=== PATIENT | male | born 1975 | race Caucasian/White ===

== ENCOUNTER 2019-08-16 08:59 | Emergency (ER) | payer OTHER ==
[~2019-08-16] VITALS: Ht 175.3 cm; Wt 99.8 kg
[~2019-08-16 08:59] MED LIST: AUGMENTIN 875875 MG PO; BACTRIM DS TAB1 EACH PO; CITRATE OF MAG296 ML; DULCOLAX5 MG; ENEMA133 ML; HYDROCODON-ACE1 EAC7 PO; KEFLEX500 MG PO; NEURONTIN600 MG PO; NORCO 5-325 TA1 EACH PO; OXYCONTIN; OXYCONTIN15 MG PO; REMERON15 MG PO; RISPERDAL4 MG PO; STOOL SOFTENER50 MG
[2019-08-16 09:39] LABS: ABSOLUTE BASOPHILS 0.2 thou/uL (0.0-0.2); ABSOLUTE EOSINOPHILS 0.3 thou/uL (0.0-0.7); ABSOLUTE MONOCYTES 1.3 thou/uL (0.0-1.2); ABSOLUTE NEUTROPHILS 9.2 thou/uL (1.6-8.1); BASOPHILS 1.3 %; EOSINOPHILS 2.4 %; HEMOGLOBIN 15.5 gm/dL (14.0-18.0); LYMPHOCYTES 15.4 %; MCH 30.4 pg (26.0-34.0); MCHC 34.5 g/dL (28.0-37.0); MCV 88.1 fL (80.0-100.0); MPV 11.3 fl. (7.2-11.1); NUCLEATED RBCS 0 /100WBC; PLATELET COUNT* 168 thou/uL (150-400); POLYS 70.9 %; RBC 5.11 mil/uL (4.50-6.00)
[2019-08-16 09:51] LABS: CALCIUM 8.9 mg/dL (8.5-10.1); CREATININE 1.2 mg/dL (0.6-1.3); POTASSIUM 4.1 mmol/L (3.5-5.1)
[2019-08-16 09:55] LABS: ALBUMIN 3.8 g/dL (3.4-5.0); SALICYLATE < 2.8 mg/dL (2.8-20.0); TOTAL BILIRUBIN 0.8 mg/dL (<0.1-1.0); TOTAL PROTEIN 7.5 g/dL (6.4-8.2)
[2019-08-16 09:57] LABS: ACETAMINOPHEN < 2 ug/mL (10-30); ALCOHOL < 10 mg/dL (<10)
[2019-08-17 10:24] LABS: URINE BILIRUBIN NEGATIVE (Negative); URINE BLOOD NEGATIVE (Negative); URINE CLARITY CLEAR; URINE COLOR YELLOW; URINE GLUCOSE-RANDOM NEGATIVE (Negative); URINE KETONES NEGATIVE (Negative); URINE LEUKOCYTES-REFLEX NEGATIVE (Negative); URINE NITRITE-REFLEX NEGATIVE (Negative); URINE PROTEIN NEGATIVE (Negative); URINE UROBILINOGEN 0.2 E.U./dl (0.2-1.0)
[2019-08-17 10:31] LABS: AMP/METHAMP Negative (Negative); BARBITURATES Negative (Negative); BENZODIAZEPINES Negative (Negative); COCAINE Negative (Negative); METHADONE Negative (Negative); OPIATES Negative (Negative); PCP Negative (Negative); THC Negative (Negative)
[2019-08-17 12:02] VITALS: BP 130/82
== END 2019-08-17 12:02 | disposition home or self-care (01) ==
LOC: M.ERS 08:59
PROVIDERS: Emergency Medicine
DX: F29 Unspecified psychosis not due to a substance or known physiological condition (principal); F32.9 Major depressive disorder, single episode, unspecified; F17.210 Nicotine dependence, cigarettes, uncomplicated; Z90.49 Acquired absence of other specified parts of digestive tract; Z88.6 Allergy status to analgesic agent

== ENCOUNTER 2020-06-13 13:20 | Emergency (ER) | payer OTHER ==
[~2020-06-13] VITALS: Ht 175.3 cm; Wt 108.9 kg
[2020-06-13 13:52] LABS: ABSOLUTE EOSINOPHILS 0.4 thou/uL (0.0-0.7); ABSOLUTE LYMPHOCYTES 2.6 thou/uL (0.8-5.3); ABSOLUTE MONOCYTES 0.9 thou/uL (0.0-1.2); ABSOLUTE NEUTROPHILS 7.4 thou/uL (1.6-8.1); BASOPHILS 0.3 %; EOSINOPHILS 3.5 %; HEMATOCRIT 45.9 % (42.0-52.0); HEMOGLOBIN 16.1 gm/dL (14.0-18.0); LYMPHOCYTES 22.9 %; MCH 30.9 pg (26.0-34.0); MCHC 35.1 g/dL (28.0-37.0); MCV 88.2 fL (80.0-100.0); MONOCYTES 7.8 %; MPV 11.6 fl. (7.2-11.1); NUCLEATED RBCS 0 /100WBC; PLATELET COUNT* 141 thou/uL (150-400); POLYS 65.5 %; WBC 11.3 thou/uL (4.0-11.0)
[2020-06-13 14:02] LABS: APTT 29.6 Seconds (25.0-31.3); PROTIME 10.2 Seconds (9.20-11.50)
[2020-06-13 14:07] LABS: CALCIUM 8.3 mg/dL (8.5-10.1); POTASSIUM 4.1 mmol/L (3.5-5.1)
[2020-06-13 14:12] LABS: ALBUMIN 3.8 g/dL (3.4-5.0); TOTAL BILIRUBIN 0.5 mg/dL (<0.1-1.0); TOTAL PROTEIN 7.4 g/dL (6.4-8.2)
[2020-06-13 17:05] VITALS: BP 112/70
--- NOTE | 2020-06-14 12:35 | EKG ---
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: : 1975 Requested By: Michelle Yun Order Number: [id number] MD: Clemente Coronado Measurements Intervals [place] Rate: 88 P: 55 DC: 147 QRS: 60 QRSD: 95 T: 49 QT: 342 QTc: 414 Interpretive Statements Sinus rhythm Borderline low voltage, extremity leads Compared to ECG 09/04/2016 11:28:25 ST (T wave) deviation no longer present Electronically Signed On 06-14-2020 12:35:03 CDT by Clemente Coronado [email or web address] <ELECTRONICALLY SIGNED> By: Rogelio Coronado MD, FACC 06/14/20 1235 1328 1328 Rogelio Coronado MD, [facility] /EPI
== END 2020-06-13 17:06 | disposition home or self-care (01) ==
LOC: M.ERS 13:20
PROVIDERS: Personal Emergency Response Attendant
DX: R07.89 Other chest pain (principal); F17.210 Nicotine dependence, cigarettes, uncomplicated; Z90.49 Acquired absence of other specified parts of digestive tract; Z88.6 Allergy status to analgesic agent